=== PATIENT | female | born 1975 | race African-American/Black ===

== ENCOUNTER 2024-07-17 12:44 | Emergency (ER) | payer MEDICARE ==
[~2024-07-17] VITALS: Ht 175.3 cm; Wt 73.0 kg
[2024-07-17 13:20] VITALS: O2SAT 100
[2024-07-17] MEDS: LIDOCAINE 5% PATCH TOP SCH (15:17)
[2024-07-17] MEDS ORDERED: NAPR220C61 MT (15:20)
[2024-07-17] MEDS ORDERED: LIDO700A15 TP (15:20)
[2024-07-17 15:42] VITALS: BP 149/91; PULSE 78; RESP 16; TEMP 36.72516; O2SAT 100
== END 2024-07-17 15:42 | disposition home or self-care (01) ==
LOC: ER 12:44
DX: M54.50 Low back pain, unspecified (principal)
CPT/HCPCS: 99282

== ENCOUNTER 2024-11-01 13:05 | Emergency (ER) | payer OTHER, MEDICARE ==
[~2024-11-01] VITALS: Ht 172.7 cm; Wt 66.0 kg
[~2024-11-01 13:05] MED LIST: LIDO700A15 TP; NAPR220C61 MT
[2024-11-01 13:13] VITALS: O2SAT 100
[2024-11-01 13:14] VITALS: BP 134/53; PULSE 75; RESP 16; TEMP 37.2; O2SAT 100
[2024-11-01] MEDS ORDERED: IBUP-2029 MT (13:57)
== END 2024-11-01 14:31 | disposition home or self-care (01) ==
LOC: ER 13:05
DX: S43.401A Unspecified sprain of right shoulder joint, initial encounter (principal); Z98.890 Other specified postprocedural states; X58.XXXA Exposure to other specified factors, initial encounter; Y93.67 Activity, basketball; Y92.89 Other specified places as the place of occurrence of the external cause; Y99.8 Other external cause status
CPT/HCPCS: 73030; 99283